=== PATIENT | female | born 1980 | race Caucasian/White ===

== ENCOUNTER 2020-10-21 15:35 | Emergency (ER) | payer SELFPAY ==
[2020-10-21] VITALS (15 sets, daily range): BP systolic 123–165; BP diastolic 68–103; PULSE 59–78; RESP 7–18; TEMP 36.8; O2SAT 92–100; BMI 25.0
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
[2020-10-21] MEDS: HYDROMORPHONE 0.5 MG INJ IV ×3 (15:43→21:14)
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
[2020-10-21 16:42] LABS: COVID19 -Nasal RAPID Negative (Negative)
--- NOTE | 2020-10-21 19:27 | PC.NURSE ---
awaiting call back from [facility] [place] [facility] for possible [place]. pt medicated per MAR for pain. NAD at this time. Prepped for orthoglass splint application.
[2020-10-21] MEDS: HYDROMORPHONE 0.5 MG INJ (19:28)
== END 2020-10-21 21:16 | disposition short-term general hospital (02) ==
PROVIDERS: Emergency Provider Emergency Medicine
DX: S42.401A Unspecified fracture of lower end of right humerus, initial encounter for closed fracture (principal); S53.101A Unspecified subluxation of right ulnohumeral joint, initial encounter; V19.9XXA Pedal cyclist (driver) (passenger) injured in unspecified traffic accident, initial encounter
CPT/HCPCS: 29105; 36415; 73060; 73090; 73200; 87635; 96374; 96375; 99284; 99291; C9803; G0390; J1170